=== PATIENT | male | born 1970 | race Caucasian/White ===

== ENCOUNTER 2017-05-13 10:07 | Emergency (ER) | payer OTHER ==
[2017-05-13] MEDS ORDERED: ONDANSETRON 4 MG/2 ML VIAL IVP STA (12:37)
[2017-05-13] MEDS ORDERED: SODIUM CHLORIDE 0.9% 2,000 ML IV STA (12:37)
--- NOTE | 2017-05-13 13:03 | ED ---
Nausea/Vomiting/Diarrhea HPI - General Source: patient, RN notes reviewed Mode of arrival: ambulatory Limitations: no limitations <Ad Isbell - Last Filed: 05/13/17 15:26> <Jagjit Garcia - Last Filed: 05/13/17 15:29> - General Chief complaint: Nausea/Vomiting/Diarrhea Stated complaint: Vomiting Time Seen by Provider: 05/13/17 12:37 - History of Present Illness Initial comments: This a 46-year-old male presents emergency Department chief complaint of nausea vomiting diarrhea. Patient states symptoms started 2 nights ago with diarrhea. Patient states progressive with nausea and vomiting. He states that he cannot keep anything down though he did state that he drank some new just prior arrival. Patient is known diabetic states that he called the vehicle he was not feeling well states that he had told him to check his blood sugar which he was found to have a blood sugar 500. Patient states that he himself 14 units of NovoLog this morning along with 5 units approximately 30 minutes ago. Patient also gave himself his Lantus this morning. Patient states that he had no sick contacts with some her symptoms. Denies fever, chills. Denies a headache for usually when he is vomiting. Denies any localized abdominal pain denies any chest pain or shortness breath. (Ad Isbell) - Related Data Home Medications Medication Instructions Recorded Confirmed Atorvastatin [Lipitor] 5 mg PO HS 05/13/17 05/13/17 Cholecalciferol (Vitamin D3) 2,000 unit PO DAILY 05/13/17 05/13/17 [Vitamin D3] Insulin Aspart [NovoLOG See Protocol SQ AC-TID 05/13/17 05/13/17 (formulary)] Insulin Glargine [Lantus] 45 - 50 unit SQ DAILY 05/13/17 05/13/17 Lisinopril [Zestril] 20 mg PO DAILY 05/13/17 05/13/17 Multivitamin [Multivitamins Adult 2 tab PO DAILY 05/13/17 05/13/17 Gummies] metFORMIN HCL [Glucophage] 1,000 mg PO BID 05/13/17 05/13/17 Previous Rx's Medication Instructions Recorded Acetaminophen-Codeine 300-30mg 1 tab PO Q4H PRN #10 tablet 05/13/17 [Tylenol #3] Ondansetron Odt [Zofran Odt] 8 mg PO Q8HR #14 tab 05/13/17 Allergies Allergy/AdvReac Type Severity Reaction Status Date / Time No Known Allergies Allergy Verified 05/13/17 14:02 Review of Systems ROS Other: All systems not noted in ROS Statement are negative. <Ad Isbell - Last Filed: 05/13/17 15:26> ROS Other: All systems not noted in ROS Statement are negative. <Jagjit Garcia - Last Filed: 05/13/17 15:29> ROS Statement: Those systems with pertinent positive or pertinent negative responses have been documented in the HPI. Past Medical History Past Medical History: Diabetes Mellitus History of Any Multi-Drug Resistant Organisms: None Reported Past Surgical History: Hernia Repair Past Psychological History: No Psychological Hx Reported Smoking Status: Current every day smoker Past Alcohol Use History: None Reported Past Drug Use History: None Reported <Ad Isbell - Last Filed: 05/13/17 15:26> General Exam Limitations: no limitations General appearance: alert, in no apparent distress Head exam: Present: atraumatic, normocephalic, normal inspection Eye exam: Present: normal appearance, PERRL, EOMI. Absent: scleral icterus, conjunctival injection, periorbital swelling ENT exam: Present: normal exam, normal oropharynx, mucous membranes moist Neck exam: Present: normal inspection, full ROM. Absent: tenderness, meningismus, lymphadenopathy Respiratory exam: Present: normal lung sounds bilaterally. Absent: respiratory distress, wheezes, rales, rhonchi, stridor Cardiovascular Exam: Present: normal rhythm, tachycardia, normal heart sounds. Absent: systolic murmur, diastolic murmur, rubs, gallop, clicks GI/Abdominal exam: Present: soft, normal bowel sounds. Absent: distended, tenderness, guarding, rebound, rigid Skin exam: Present: warm, dry, intact, normal color. Absent: rash <Ad Isbell - Last Filed: 05/13/17 15:26> Vital Signs 05/13/17 10:26 Temperature 97.5 F L Pulse Rate 110 H Respiratory 20 Rate Blood Pressure 149/69 O2 Sat by Pulse 100 Oximetry Medical Decision Making - Lab Data Result diagrams: 05/13/17 11:48 05/13/17 11:48 <Ad Isbell - Last Filed: 05/13/17 15:26> - Lab Data Result diagrams: 05/13/17 11:48 05/13/17 11:48 <Jagjit Garcia - Last Filed: 05/13/17 15:29> - Medical Decision Making 46-year-old male present emergency from for nausea vomiting abdominal discomfort. Patient did have hyperglycemia he did give insulin prior arrival. Patient's blood sugar has improved he was well-hydrated. Patient states he feels significantly improved at this time. Patient was found to have her potassium borderline DKA and pancreatitis. Patient states she does not want to be admitted he was offered admission declines. He does understand the risk of going home this time. (Ad Isbell) The patient was seen and examined. All diagnostics were reviewed. It is felt as though he would benefit from admission to the hospital. The patient refuses. Risks and benefits were discussed in detail. He was counseled regarding diet therapy as well. The case is discussed with the PA and agree with the findings as documented. Return parameters are discussed. (Jagjit Garcia) - Lab Data Lab Results 05/13/17 05/13/17 05/13/17 Range/Units 11:48 11:48 13:34 WBC 17.3 H (3.8-10.6) k/uL RBC 5.41 (4.30-5.90) m/uL Hgb 15.5 (13.0-17.5) gm/dL Hct 47.2 (39.0-53.0) % MCV 87.2 (80.0-100.0) fL MCH 28.7 (25.0-35.0) pg MCHC 32.9 (31.0-37.0) g/dL RDW 12.7 (11.5-15.5) % Plt Count 295 (150-450) k/uL Neutrophils % 90 % Lymphocytes % 5 % Monocytes % 4 % Eosinophils % 0 % Basophils % 0 % Neutrophils # 15.6 H (1.3-7.7) k/uL Lymphocytes # 0.9 L (1.0-4.8) k/uL Monocytes # 0.7 (0-1.0) k/uL Eosinophils # 0.0 (0-0.7) k/uL Basophils # 0.0 (0-0.2) k/uL Sodium 135 L (137-145) mmol/L Potassium 4.9 (3.5-5.1) mmol/L Chloride 94 L (98-107) mmol/L Carbon Dioxide 22 (22-30) mmol/L Anion Gap 19 mmol/L BUN 30 H (9-20) mg/dL Creatinine 1.20 (0.66-1.25) mg/dL Est GFR (CKD-EPI)AfAm 84 (>60 ml/min/1.73 sqM) Est GFR (CKD-EPI)NonAf 73 (>60 ml/min/1.73 sqM) Glucose 372 H (74-99) mg/dL POC Glucose (mg/dL) 285 H (75-99) mg/dL POC Glu Tool Builder ID Christy Nixon Calcium 9.7 (8.4-10.2) mg/dL Total Bilirubin 0.6 (0.2-1.3) mg/dL AST 31 (17-59) U/L ALT 36 (21-72) U/L Alkaline Phosphatase 113 (38-126) U/L Total Protein 7.2 (6.3-8.2) g/dL Albumin 4.8 (3.5-5.0) g/dL Amylase 257 H (30-110) U/L Lipase 898 H (23-300) U/L Acetone, Qual Positive (Negative) Disposition <Ad Isbell - Last Filed: 05/13/17 15:26> <Jagjit Garcia - Last Filed: 05/13/17 15:29> Clinical Impression: Pancreatitis, Hyperglycemia, Nausea & vomiting, Abdominal pain Instructions: Pancreatitis (ED) Additional Instructions: Please return to the Emergency Department if symptoms worsen or any other concerns. Prescriptions: Acetaminophen-Codeine 300-30mg [Tylenol #3] 1 tab PO Q4H PRN #10 tablet PRN Reason: pain Ondansetron Odt [Zofran Odt] 8 mg PO Q8HR #14 tab Referrals: Ad Skinner DO [Primary Care Provider] - 1-2 days
[2017-05-13 13:36] LABS: Glucose,Whole Blood 285 mg/dL (75-99)
[2017-05-13 13:38] LABS: Basophils % (A) 0 %; Eosinophils % (A) 0 %; HCT 47.2 % (39.0-53.0); HGB 15.5 gm/dL (13.0-17.5); Lymphocytes # (A) 0.9 k/uL (1.0-4.8); Lymphocytes % (A) 5 %; MCH 28.7 pg (25.0-35.0); MCHC 32.9 g/dL (31.0-37.0); MCV 87.2 fL (80.0-100.0); Mean Platelet Volume 8.5; Monocytes # (A) 0.7 k/uL (0-1.0); Monocytes % (A) 4 %; Neutrophils # (A) 15.6 k/uL (1.3-7.7); Neutrophils % (A) 90 %; Platelet Count 295 k/uL (150-450); RBC 5.41 m/uL (4.30-5.90); RDW 12.7 % (11.5-15.5); WBC 17.3 k/uL (3.8-10.6)
[2017-05-13 13:49] LABS: ALT 36 U/L (21-72); AST 31 U/L (17-59); Albumin 4.8 g/dL (3.5-5.0); Alkaline Phosphatase 113 U/L (38-126); Amylase 257 U/L (30-110); Anion Gap 19 mmol/L; Blood Urea Nitrogen 30 mg/dL (9-20); Calcium 9.7 mg/dL (8.4-10.2); Carbon Dioxide 22 mmol/L (22-30); Chloride 94 mmol/L (98-107); Glucose 372 mg/dL (74-99); Lipase 898 U/L (23-300); Potassium 4.9 mmol/L (3.5-5.1); Sodium 135 mmol/L (137-145); Total Bilirubin 0.6 mg/dL (0.2-1.3); Total Protein 7.2 g/dL (6.3-8.2)
[2017-05-13 15:39] VITALS: BP 159/67; PULSE 93; RESP 16; TEMP 98
== END 2017-05-13 15:38 | disposition home or self-care (01) ==
LOC: EC 10:07
DX: K85.90 Acute pancreatitis without necrosis or infection, unspecified (principal); E11.65 Type 2 diabetes mellitus with hyperglycemia; R19.7 Diarrhea, unspecified; F17.200 Nicotine dependence, unspecified, uncomplicated; Z79.4 Long term (current) use of insulin; Z79.899 Other long term (current) drug therapy
CPT/HCPCS: 36415; 80053; 82150; 82009; 83690; 85025; 99284; 96374; 96361 ×2; J2405

== ENCOUNTER 2020-11-12 17:41 | Emergency (ER) | payer BC, OTHER ==
[2020-11-12 18:03] VITALS: RESP 20
[2020-11-12] MEDS ORDERED: PROPARACAINE 0.5% OPHTH DROPS 15 ML BTL LEFT EYE STA (19:36)
[2020-11-12] MEDS ORDERED: FLUORESCEIN STRIPS 1 MG STRIP LEFT EYE ONE (19:36)
[2020-11-12] MEDS ORDERED: TOBRAMYCIN 0.3% OPHTH DROPS 5 ML BTL LEFT EYE STA (19:52)
--- NOTE | 2020-11-12 19:53 | ED ---
Eye Problem HPI - General Chief complaint: Eye Problems Stated complaint: eye problem Time Seen by Provider: 11/12/20 19:35 Source: patient Mode of arrival: ambulatory Limitations: no limitations - History of Present Illness Initial comments: 50-year-old male patient presents to the emergency department today for evaluation of irritation to the left eye. Patient states the irritation has been going on for the last 3 days. Reports clear tearing. States he is sensitive to the light. Denies fever or chills. States when he wakes up his eye is swollen shut. Denies any known injury but states he was riding his bike prior to onset of symptoms and there are a lot of bugs flying around. He is unsure if maybe one got into his eye. Denies any blurred or double vision. Denies wearing contact lenses. States his last tetanus vaccine was one year ago. - Related Data Home Medications Medication Instructions Recorded Confirmed Atorvastatin [Lipitor] 5 mg PO HS 05/13/17 05/13/17 Cholecalciferol (Vitamin D3) 2,000 unit PO DAILY 05/13/17 05/13/17 [Vitamin D3] INSULIN ASPART (NovoLOG) [NovoLOG See Protocol SQ AC-TID 05/13/17 05/13/17 (formulary)] Insulin Glargine [Lantus] 45 - 50 unit SQ DAILY 05/13/17 05/13/17 Multivitamin [Multivitamins Adult 2 tab PO DAILY 05/13/17 05/13/17 Gummies] lisinopriL [Zestril] 20 mg PO DAILY 05/13/17 05/13/17 metFORMIN HCL [Glucophage] 1,000 mg PO BID 05/13/17 05/13/17 Previous Rx's Medication Instructions Recorded Acetaminophen-Codeine 300-30mg 1 tab PO Q4H PRN #10 tablet 05/13/17 [Tylenol #3] Ondansetron Odt [Zofran Odt] 8 mg PO Q8HR #14 tab 05/13/17 Allergies Allergy/AdvReac Type Severity Reaction Status Date / Time No Known Allergies Allergy Verified 11/12/20 18:00 Review of Systems ROS Statement: Those systems with pertinent positive or pertinent negative responses have been documented in the HPI. ROS Other: All systems not noted in ROS Statement are negative. Past Medical History Past Medical History: Diabetes Mellitus History of Any Multi-Drug Resistant Organisms: None Reported Past Surgical History: Hernia Repair Past Psychological History: No Psychological Hx Reported Smoking Status: Current every day smoker Past Alcohol Use History: None Reported Past Drug Use History: None Reported General Exam Limitations: no limitations General appearance: alert, in no apparent distress, other (This is a well- developed, well-nourished adult male patient in no acute distress. Vital signs upon presentation are temperature 98.2F, pulse 78, respirations 20, blood pressure 156/94, pulse ox 99% on room air.) Eye exam: Present: PERRL, EOMI, other (Fluorescein stain with Wood's lamp examination was performed left eye. There was foreign body noted at 5:00 on the cornea. Negative Tamiko sign. ). Absent: scleral icterus, conjunctival injection, periorbital swelling ENT exam: Present: normal exam, normal oropharynx, mucous membranes moist Respiratory exam: Present: normal lung sounds bilaterally. Absent: respiratory distress, wheezes, rales, rhonchi, stridor Cardiovascular Exam: Present: regular rate, normal rhythm, normal heart sounds. Absent: systolic murmur, diastolic murmur, rubs, gallop, clicks Neurological exam: Present: alert, oriented X3, CN II-XII intact Psychiatric exam: Present: normal affect, normal mood Skin exam: Present: warm, dry, intact, normal color. Absent: rash Course Vital Signs 11/12/20 11/12/20 18:01 20:04 Temperature 98.2 F 97.9 F Pulse Rate 78 67 Respiratory 20 20 Rate Blood Pressure 156/94 129/81 O2 Sat by Pulse 99 97 Oximetry Procedures - Forgein Body Removal Eye Site: Left Location in eye(s): 5:00 Anesthetic Used: Proparacaine Eye Exam Technique: [place] Lamp, Fluorescein Foreign Body Suspected: Other Forgein Body Removal Technique: Needle Remaining Debris: No Patient Tolerated: no complications Medical Decision Making - Medical Decision Making 50-year-old male patient presents to the emergency department today for evaluation of left eye irritation. Physical examination did reveal foreign body to 5:00 on the cornea. Fluorescein stain with lamp examination was performed and showed no evidence for any other corneal injury, negative Tamiko sign. Was able to remove the foreign body utilizing an insulin needle. He'll be discharged with tobramycin drops to instill 4 times a day while awake. We discharged follow-up with ophthalmology if his symptoms are not improved over the next 24 hours. Return parameters are discussed in detail. He verbalizes understanding and agrees with this plan. My attending is Dr. Shipman. Disposition Clinical Impression: Foreign body of left eye Disposition: HOME SELF-CARE Condition: Good Instructions (If sedation given, give patient instructions): Eye Foreign Body (ED) Additional Instructions: Use antibiotic drop four times daily while awake. If symptoms are not improved after 24 hours follow-up with the wireworker. Return to the emergency department for any new, worsening, or concerning symptoms. Is patient prescribed a controlled substance at d/c from ED?: No Referrals: [facility],Clinic [Primary Care Provider] - 1-2 days Marga Puga MD [STAFF PHYSICIAN] - 1-2 days Time of Disposition: 19:53
[2020-11-12 20:05] VITALS: BP 129/81; PULSE 67; TEMP 97.9
== END 2020-11-12 20:05 | disposition home or self-care (01) ==
LOC: EC 17:41
DX: T15.02XA Foreign body in cornea, left eye, initial encounter (principal); E11.9 Type 2 diabetes mellitus without complications; F17.200 Nicotine dependence, unspecified, uncomplicated; Z79.84 Long term (current) use of oral hypoglycemic drugs; W45.8XXA Other foreign body or object entering through skin, initial encounter; Y93.55 Activity, bike riding
CPT/HCPCS: 65220; 99283

== ENCOUNTER → 2021-12-27 | Outpatient (CLI) | payer BC ==
[2021-12-27 20:05] LABS: ALT 39 U/L (10-49); AST 30 U/L (14-35); African American GFR (CKD) 117.8 (60.0-200.0); Albumin 4.2 g/dL (3.8-4.9); Albumin/Globulin Ratio 2.05 (1.60-3.17); Alkaline Phosphatase 81 U/L (41-126); BUN/Creat Ratio 16.61 Ratio (12.00-20.00); Blood Urea Nitrogen 14.1 mg/dL (9.0-27.0); Calcium 9.1 mg/dL (8.7-10.3); Carbon Dioxide 25.5 mmol/L (20.0-27.5); Chloride 104 mmol/L (96-109); Glucose 113 mg/dL (70-110); Non-African American GFR(CKD) 101.7 (60.0-200.0); Potassium 4.4 mmol/L (3.5-5.5); Sodium 138 mmol/L (135-145); Total Protein 6.2 g/dL (6.2-8.2)
[2021-12-28 00:02] LABS: C-Peptide <0.02 ng/mL (0.81-3.85)
== END | disposition home or self-care (01) ==
LOC: LABWHC1 12:39
PROVIDERS: ATTEND Internal Medicine Endocrinology, Diabetes & Metabolism
DX: E10.65 Type 1 diabetes mellitus with hyperglycemia (principal)
CPT/HCPCS: 36415; 80053; 84681

== ENCOUNTER 2022-01-24 18:02 | Emergency (ER) | payer OTHER, BC ==
[2022-01-24 18:15] VITALS: TEMP 98.2
--- NOTE | 2022-01-24 18:21 | ED ---
General Adult HPI - General Chief complaint: Upper Respiratory Infection Stated complaint: cough, sob Time Seen by Provider: 01/24/22 18:20 Source: patient Mode of arrival: ambulatory Limitations: no limitations - History of Present Illness Initial comments: Patient presents to the ED complaining of having a productive cough, wheezing and dyspnea for the past 2-1/2 weeks or so. Patient admits that he is a smoker. Patient denies known sick contact. Patient states that he has received his Covid vaccines, but he denies being vaccinated for influenza. Patient denies having any pain, fever or chills, headache, sore throat, chest pain or pressure, hemoptysis, palpitations, dizziness, abdominal pain, nausea/vomiting/diarrhea, decreased urine output, leg or calf swelling or pain, or any other symptoms or complaints. - Related Data Home Medications Medication Instructions Recorded Confirmed Atorvastatin [Lipitor] 5 mg PO HS 05/13/17 05/13/17 Cholecalciferol (Vitamin D3) 2,000 unit PO DAILY 05/13/17 05/13/17 [Vitamin D3] INSULIN ASPART (NovoLOG) [NovoLOG See Protocol SQ AC-TID 05/13/17 05/13/17 (formulary)] Insulin Glargine [Lantus] 45 - 50 unit SQ DAILY 05/13/17 05/13/17 Multivitamin [Multivitamins Adult 2 tab PO DAILY 05/13/17 05/13/17 Gummies] lisinopriL [Zestril] 20 mg PO DAILY 05/13/17 05/13/17 metFORMIN HCL [Glucophage] 1,000 mg PO BID 05/13/17 05/13/17 Previous Rx's Medication Instructions Recorded Acetaminophen-Codeine 300-30mg 1 tab PO Q4H PRN #10 tablet 05/13/17 [Tylenol #3] Ondansetron Odt [Zofran Odt] 8 mg PO Q8HR #14 tab 05/13/17 Albuterol Inhaler [Ventolin Hfa 2 puff INHALATION Q4HR PRN #1 each 01/24/22 Inhaler] Doxycycline Hyclate 100 mg PO BID 7 Days #14 tab 01/24/22 predniSONE [Deltasone] 20 mg PO BID #10 tab 01/24/22 Allergies Allergy/AdvReac Type Severity Reaction Status Date / Time No Known Allergies Allergy Verified 01/24/22 18:15 Review of Systems ROS Statement: Those systems with pertinent positive or pertinent negative responses have been documented in the HPI. ROS Other: All systems not noted in ROS Statement are negative. Past Medical History Past Medical History: Diabetes Mellitus, Hypertension History of Any Multi-Drug Resistant Organisms: None Reported Past Surgical History: Hernia Repair Past Psychological History: No Psychological Hx Reported Smoking Status: Current every day smoker Past Alcohol Use History: None Reported Past Drug Use History: None Reported General Exam Limitations: no limitations General appearance: alert, in no apparent distress Head exam: Present: atraumatic, normocephalic Eye exam: Present: normal appearance, EOMI ENT exam: Present: normal oropharynx, mucous membranes moist Neck exam: Present: other (Trachea is in midline) Respiratory exam: Present: other (Expiratory wheezes bilaterally). Absent: respiratory distress, rales, rhonchi, stridor Cardiovascular Exam: Present: regular rate, normal rhythm, normal heart sounds, other (Normal radial pulses bilaterally) GI/Abdominal exam: Present: soft. Absent: distended, tenderness, guarding Extremities exam: Present: other (Negative Homans sign bilaterally). Absent: tenderness, pedal edema, calf tenderness Neurological exam: Present: alert, oriented X3 Psychiatric exam: Present: normal affect, normal mood Skin exam: Present: warm, dry, intact, normal color Course Vital Signs 01/24/22 01/24/22 01/24/22 18:13 19:07 19:16 Temperature 98.2 F Pulse Rate 83 68 70 Respiratory 18 Rate Blood Pressure 206/102 O2 Sat by Pulse 97 Oximetry - Reevaluation(s) Reevaluation #1: 01/24/22 20:06 Patient states that he feels significantly better after receiving a DuoNeb treatment in the ED. Patient remains alert and breathing comfortable. Patient now has clear breath sounds bilaterally. Patient continues to have a normal room air oxygen saturation. Patient denies development of any new symptoms while in the ED. Patient is aware of his test results, and he feels comfortable being discharged home at this time. Patient was counseled about COPD exacerbations, and he was clearly explained return and follow-up instructions. Patient was advised on smoking cessation. Patient was instructed to follow up closely with his primary care provider. Patient feels comfortable with this plan. Medical Decision Making - Medical Decision Making Although the patient denies known history of COPD, he admits to being a chronic smoker, and given his wheezing, I suspect that he likely is having a COPD e xacerbation. Patient's wheezing/symptoms have significantly improved with DuoNeb treatment in the ED. Patient is afebrile. Patient's viral studies are negative. Patient's chest x-ray is fairly unremarkable. Will discharge patient home at this time with prescriptions for an albuterol inhaler, course of prednisone and antibiotics. Patient feels comfortable with this plan. - Lab Data Lab Results 01/24/22 01/24/22 Range/Units 18:30 18:30 Coronavirus (PCR) Not Detected (Not Detectd) Influenza Type A RNA Not Detected (Not Detectd) Influenza Type B (PCR) Not Detected (Not Detectd) - Radiology Data Chest x-ray: Normal chest. No change. Disposition Clinical Impression: Wheezing, Dyspnea, COPD exacerbation Disposition: HOME SELF-CARE Condition: Stable Instructions (If sedation given, give patient instructions): COPD (Chronic Obstructive Pulmonary Disease) (ED) Additional Instructions: Return to the ER immediately should you develop increased shortness of breath, a fever, chest pain, feeling dizzy or faint, or new or worsening symptoms. Follow up closely with your primary care provider. Prescriptions: predniSONE [Deltasone] 20 mg PO BID #10 tab Doxycycline Hyclate 100 mg PO BID 7 Days #14 tab Albuterol Inhaler [Ventolin Hfa Inhaler] 2 puff INHALATION Q4HR PRN #1 each PRN Reason: Dyspnea Is patient prescribed a controlled substance at d/c from ED?: No Referrals: [facility],Clinic [Primary Care Provider] - 1-2 days Time of Disposition: 20:11
[2022-01-24] MEDS ORDERED: predniSONE 50 MG TAB PO STA (18:26)
[2022-01-24] MEDS ORDERED: IPRATROPIUM-ALBUTEROL 3 ML NEB INHALATION STA (18:26)
--- NOTE | 2022-01-24 19:05 | XR ---
EXAMINATION TYPE: XR chest 2V DATE OF EXAM: 01/24/2022 COMPARISON: 07/27/2012 HISTORY: Cough. Short of breath TECHNIQUE: FINDINGS: Heart and mediastinum are normal. Lungs are clear. Diaphragm is normal. Bony thorax is inta ct. IMPRESSION: Normal chest. No change.
[2022-01-24 21:01] VITALS: BP 177/98; PULSE 88; RESP 15
== END 2022-01-24 21:06 | disposition home or self-care (01) ==
LOC: EC 18:02
DX: J44.1 Chronic obstructive pulmonary disease with (acute) exacerbation (principal); E11.9 Type 2 diabetes mellitus without complications; I10 Essential (primary) hypertension; F17.200 Nicotine dependence, unspecified, uncomplicated; Z79.4 Long term (current) use of insulin; Z79.84 Long term (current) use of oral hypoglycemic drugs; Z79.899 Other long term (current) drug therapy; Z20.822 Contact with and (suspected) exposure to COVID-19
CPT/HCPCS: 94640; 87502; 87635; 71046; 99285; J7512